=== PATIENT | female | born 1995 | race Caucasian/White ===

== ENCOUNTER 2017-09-30 22:08 | Emergency (ER) | payer OTHER ==
[~2017-09-30] VITALS: Ht 177.8 cm; Wt 80.0 kg
[2017-09-30 22:13] VITALS: TEMP 36.6; Ht 177.8 cm; Wt 80.0 kg
[2017-09-30] MEDS ORDERED: SODIUM CHLORIDE 0.9% 1000ML 1,000 ML IV STA (22:47)
[2017-09-30] MEDS ORDERED: ONDANSETRON INJ 2 MG/ML 2 ML VIAL IV STA (22:47)
[2017-09-30] MEDS ORDERED: MULT-506 PO (22:51)
[2017-09-30] MEDS ORDERED: BCPILLS PO (22:51)
[2017-09-30] MEDS ORDERED: OPTIRAY 320 IV PRN (23:00)
[2017-09-30] MEDS ORDERED: MoRPHine SULFATE 4 MG/ML 1 ML CARP\\VIAL IV PRN (23:00)
[2017-09-30 23:06] LABS: BASO % 0.5 %; BASO ABS # 0.04 K/uL (0-0.2); EOS % 1.2 %; EOS ABS # 0.09 K/uL (0-0.5); HEMATOCRIT 41.3 % (37-47); IG# 0.02 K/uL (0.00-0.02); LYMPH % 19.9 %; LYMPH ABS # 1.46 K/uL (1.2-3.4); MEAN CELL VOLUME 88.8 fL (80-100); MEAN CORPUSCULAR HEMOGLOBIN 30.1 pg (25-34); MEAN CORPUSCULAR HGB CONC 33.9 g/dl (32-36); MEAN PLATELET VOLUME 10.3 fL (7.4-10.4); MONO % 6.5 %; MONO ABS # 0.48 K/uL (0.11-0.59); NEUT % 71.6 %; NEUT ABS # 5.26 K/uL (1.4-6.5); PLATELET COUNT 238 K/uL (130-400); RED CELL DISTRIBUTION WIDTH CV 13.2 % (11.5-14.5); RED CELL DISTRIBUTION WIDTH SD 42.3 fL (36.4-46.3); WHITE BLOOD COUNT 7.35 K/uL (4.8-10.8)
[2017-09-30 23:23] LABS: ALBUMIN 3.4 gm/dl (3.4-5.0); ALT/SGPT 14 U/L (12-78); BLOOD UREA NITROGEN 8 mg/dl (7-18); CALCIUM 8.7 mg/dl (8.5-10.1); CARBON DIOXIDE 25 mmol/L (21-32); CREATININE 0.79 mg/dl (0.60-1.20); GLUCOSE 113 mg/dl (70-99); LIPASE 128 U/L (73-393); POTASSIUM 3.2 mmol/L (3.5-5.1); SODIUM 138 mmol/L (136-145)
[2017-09-30 23:26] LABS: ALKALINE PHOSPHATASE 53 U/L (45-117); AST/SGOT 12 U/L (15-37); TOTAL PROTEIN 7.3 gm/dl (6.4-8.2)
[2017-10-01 00:31] LABS: INR 1.1 (0.9-1.1)
[2017-10-01 01:38] VITALS: BP 106/65; PULSE 55; O2SAT 96
--- NOTE | 2017-10-01 07:09 | DIAGNOSTIC IMAGING REPORT ---
ABD/PELVIS IV AND ORAL CONT CLINICAL HISTORY: 22 years-old Female presenting with ABDOMINAL PAIN/GI, diarrhea for 4 days, mid to lower abdominal pain. TECHNIQUE: Multidetector CT of the abdomen and pelvis was performed after the administration of oral and intravenous contrast. IV contrast: 93 mL of Optiray 320. A dose lowering technique was used consistent with the principles of ALARA (as low as reasonably achievable). COMPARISON: None. CT DOSE (mGy.cm): The estimated cumulative dose is 386.21 mGy.cm. 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 Lung bases: Minimal mosaic attenuation at the right lower lobe. Lung bases otherwise clear. Normal heart size. No pericardial or pleural effusion. Liver: Heterogeneity of enhancement of the liver with suggestion of mild periportal edema. Trace perihepatic fluid. No focal liver lesion. Patent hepatic vasculature. Biliary: No intrahepatic or extrahepatic biliary ductal dilatation. Normal gallbladder. Pancreas: Normal. Spleen: Normal. Adrenal glands: Normal. Kidneys and ureters: Normal. No hydronephrosis. Distal ureters poorly visualized. Bladder: Mild circumferential bladder wall thickening. Pelvic organs: Uterus and ovaries normal. Bowel: Significant wall thickening and submucosal edema extending from the upper rectum to the splenic flexure. Less extensive colonic wall thickening suggested in the remainder of the colon. The appendix is not well visualized though no significant inflammatory change appears centered in the right lower quadrant. No bowel obstruction. Oral contrast has not yet transited to the terminal ileum. No evidence of small bowel wall thickening. Peritoneal cavity: Trace free fluid in the pelvis. Lymph nodes: No enlarged lymph nodes in the abdomen or pelvis. Vasculature: Aorta and IVC patent and normal in caliber. Abdominal wall: Normal. Musculoskeletal: Normal. IMPRESSION: 1. Findings consistent with pancolitis most severely affecting the left colon from the splenic flexure to the upper rectum. This is most likely infectious in etiology. No apparent involvement of small bowel. 2. Mild circumferential bladder wall thickening could suggest cystitis, although this could be secondarily reactive given the adjacent inflamed sigmoid colon. Correlate with urinalysis. 3. Heterogeneity of enhancement of the liver with periportal edema likely relates to aggressive fluid resuscitation. Electronically signed by: Dakota Alas M.D. 10/01/2017 7:08 AM Dictated Date/Time: 10/01/2017 7:01 AM
--- NOTE | 2017-10-02 06:23 | EMERGENCY ROOM VISIT NOTE ---
ED Visit Note First contact with patient: 22:22 Chief Complaint: Abdominal pain and diarrhea. History of Present Illness: Ms. Mauricio is a 22 year-old white female who ambulates into the ED complaining of lower abdominal pain and diarrhea for the last 4 days. Historically patient reports no significant gastrointestinal disorders or abdominal surgeries. Patient reports a gradual onset of bilateral lower quadrant abdominal pain that started approximately 4 days ago. Since that time the pain has been constant but has waxed and waned in intensity. The pain is currently described as rambling sensation. The pain is nonradiating. The patient reports she has noted a cyclic pattern to her pain; she reports she has this mild underlying pain that she rates 4/10 and then the pain slowly builds up in intensity and she has an episode of diarrhea and the pain then decreases. Currently she is rating her discomfort 4/10. She has not taken any pain medications for her symptoms but has taken Imodium for diarrhea. She reports her initial episodes of diarrhea were yellowish and watery but since last evening her diarrhea has been watery with bright red blood. Additionally intermittently she reports she' s been having chills and a decreased appetite. Patient denies pedro fevers, sweats, skin eruptions, skin color changes, upper respiratory tract symptoms, shortness of breath, chest pain, black/tarry stools , urinary symptoms, hematuria, vaginal bleeding, vaginal discharge, back/flank pain. Review of Systems: As noted above in history of present illness. All body systems were reviewed and found to be negative as noted above. Past Medical History: Patient denies. Current Medications: -control multivitamins. Allergies to Medications: Patient denies. 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 Physical Examination: Vital Signs: Date Time Temp Pulse Resp B/P (MAP) Pulse Ox O2 Delivery O2 Flow Rate FiO2 10/01/17 01:38 55 16 106/65 96 Room Air 09/30/17 23:55 55 18 117/82 99 Room Air 09/30/17 22:13 36.6 80 18 134/89 99 Room Air GENERAL: 22-year-old female in mild distress due to pain, nontoxic-appearing, afebrile and hemodynamically stable. NEUROLOGICAL: Awake, alert and oriented to person, place and time. Answering questions appropriately and following commands. Normal gait. Good hand eye coordination. SKIN: Warm, dry and pink. No soft tissue eruptions or trauma noted. HEENT: Atraumatic and normocephalic. PERRLA. Sclera white and conjunctiva pink. Oral cavity moist and pink. Pharynx is nonerythematous or edematous. Speech normal. No lymphadenopathy. Trachea midline. No jugular venous distention. BACK: No tenderness over the bony spine. No CVA tenderness. THORAX: Lungs sounds are clear to auscultation and equal bilaterally with symmetrical chest wall. No wheezing, rales or rhonchi. No crepitus, tenderness , subcutaneous air or deformities noted. HEART: Regular rate and rhythm. No gallops, rubs or murmurs are appreciated. ABDOMEN: Flat and soft with mild tenderness throughout the lower abdomen without side prominence. Positive bowel sounds in all quadrants. No guarding, rigidity or organomegaly. EXTREMITIES: Moves all extremities well on command and with purpose. All distal neurovascular statuses are intact and equal bilaterally. ED Course: Patient is assessed as noted above. Patient's medication list was reviewed. Laboratory Testing: Test 09/30/17 22:40 09/30/17 23:00 09/30/17 23:11 Range/Units White Blood Count 7.35 4.8-10.8 K/uL Red Blood Count 4.65 4.2-5.4 M/uL Hemoglobin 14.0 12.0-16.0 g/dL Hematocrit 41.3 37-47 % Mean Corpuscular Volume 88.8 80-100 fL Mean Corpuscular Hemoglobin 30.1 25-34 pg Mean Corpuscular Hemoglobin Concent 33.9 32-36 g/dl Platelet Count 238 130-400 K/uL Mean Platelet Volume 10.3 7.4-10.4 fL Neutrophils (%) (Auto) 71.6 % Lymphocytes (%) (Auto) 19.9 % Monocytes (%) (Auto) 6.5 % Eosinophils (%) (Auto) 1.2 % Basophils (%) (Auto) 0.5 % Neutrophils # (Auto) 5.26 1.4-6.5 K/uL Lymphocytes # (Auto) 1.46 1.2-3.4 K/uL Monocytes # (Auto) 0.48 0.11-0.59 K/uL Eosinophils # (Auto) 0.09 0-0.5 K/uL Basophils # (Auto) 0.04 0-0.2 K/uL RDW Standard Deviation 42.3 36.4-46.3 fL RDW Coefficient of Variation 13.2 11.5-14.5 % Immature Granulocyte % (Auto) 0.3 % Immature Granulocyte # (Auto) 0.02 0.00-0.02 K/uL Sodium Level 138 136-145 mmol/L Potassium Level 3.2 3.5-5.1 mmol/L Chloride Level 105 98-107 mmol/L Carbon Dioxide Level 25 21-32 mmol/L Anion Gap 7.0 3-11 mmol/L Blood Urea Nitrogen 8 7-18 mg/dl Creatinine 0.79 0.60-1.20 mg/dl Est Creatinine Clear Calc Drug Dose 122.8 ml/min Estimated GFR () 124.9 Estimated GFR (Non- 107.8 BUN/Creatinine Ratio 10.2 10-20 Random Glucose 113 70-99 mg/dl Calcium Level 8.7 8.5-10.1 mg/dl Total Bilirubin 0.4 0.2-1 mg/dl Direct Bilirubin < 0.1 0-0.2 mg/dl Aspartate Amino Transf (AST/SGOT) 12 15-37 U/L Alanine Aminotransferase (ALT/SGPT) 14 12-78 U/L Alkaline Phosphatase 53 45-117 U/L Total Protein 7.3 6.4-8.2 gm/dl Albumin 3.4 3.4-5.0 gm/dl Lipase 128 73-393 U/L Urine Color DK YELLOW Urine Appearance CLOUDY CLEAR Urine pH 6.0 4.5-7.5 Urine Specific [place] 1.029 1.000-1.030 Urine Protein TRACE NEG Urine Glucose (UA) NEG NEG Urine Ketones 1+ NEG Urine Occult Blood NEG NEG Urine Nitrite NEG NEG Urine Bilirubin NEG NEG Urine Urobilinogen NEG NEG Urine Leukocyte Esterase NEG NEG Urine WBC (Auto) 1-5 0-5 /hpf Urine RBC (Auto) 0-4 0-4 /hpf Urine Hyaline Casts (Auto) 0 0-5 /lpf Urine Epithelial Cells (Auto) >30 0-5 /lpf Urine Bacteria (Auto) 2+ NEG Urine Crystals CALCIUM OXALATE NONE PRSENT Urine Mucus PRESENT NONE PRSENT Urine Test NEG NEG Prothrombin Time 11.4 9.0-12.0 SECONDS Prothromb Time International Ratio 1.1 0.9-1.1 Activated Partial Thromboplast Time 28.0 21.0-31.0 SECONDS Partial Thromboplastin Ratio 1.1 D-Dimer 1090 0-500 ug/L FEU Microbiology Results 09/30/17 C.difficile Toxin B Gene (PCR) - No C. difficile toxin B gene detected 09/30/17 Rotavirus Antigen - Negative for Rotavirus Antigen 09/30/17 WBC Smear - Pending. 09/30/17 Shiga Toxin Test - Pending 09/30/17 Stool Culture - Pending Contrast Abdominal/Pelvic CT: Was reviewed by myself and read by the radiologist showing findings consistent with pancolitis most severely affecting the left: From the splenic flexure to the upper rectum, mild circumferential bladder wall thickening suggestive of cystitis and heterogeneity of enhancement of the liver with periportal. Patient was hydrated with normal saline and received 4 mg of morphine IV for pain and 4 mg of Zofran IV. Patient was reassessed multiple times during her stay in the emergency department. Patient's case was reviewed with Dr. Ballesteros; we agreed on diagnostic approach, treatment, disposition and plan. I did speak with case management because of the lateness of the case and requested that they contact Dr. Ortiz, gastroenterology office, for close follow-up and care. Patient was educated about today's findings and instructed on her treatment plan ; she verbalized understanding and agreement with this plan. Clinical Impression: Pancolitis. Hematochezia. Bilateral lower abdominal pain. Decision-Making: Initially my differential diagnosis I considered appendicitis, colitis, urinary tract infection, diverticulitis, and other causes. Disposition: Patient discharged home in stable condition; prior to departure she was reassessed and subjectively reported she was pain-free. Plan: Patient was encouraged use 650 mg of acetaminophen every 6 hours as needed for pain; she is encouraged to avoid NSAIDs. Patient is encouraged to bland diet for the next 48 hours. Patient was encouraged to avoid other gastrointestinal irritants. Patient is encouraged to follow-up with gastroenterology for specific care and possible colonoscopy. Patient was encouraged return ED for worsening/uncontrolled pain, worsening diarrhea, black/tarry stools, fevers, bloody vomitus, any abnormal bleeding or any new/concerning symptoms.
--- NOTE | 2017-10-02 15:37 | Pharmacy Progress Note ---
ED Pharmacist Culture FollowUp Date of Service: Oct 02, 2017. 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 Reviewed case with Dr Ballesteros, no abx therapy indicated. Contacted patient, explained dx. Advised patient no abx therapy warranted and that she needed to avoid use of anti-diarrheal medications as this can worsen the infection by preventing toxin elimination. Advised pt stay well hydrated and f/u with PCP within the next week as this strain of e coli can affect kidney fxn.
== END 2017-10-01 02:10 | disposition home or self-care (01) ==
LOC: C.EDB 22:10
DX: K51.00 Ulcerative (chronic) pancolitis without complications (principal); K92.1 Melena; R10.30 Lower abdominal pain, unspecified; Z79.3 Long term (current) use of hormonal contraceptives